=== PATIENT | male | born 1950 | race Caucasian/White ===

== ENCOUNTER → 2020-04-25 | Outpatient (CLI) | payer OTHER ==
--- NOTE | 2020-04-25 12:51 | XR ---
EXAMINATION TYPE: XR chest 2V DATE OF EXAM: 04/25/2020 COMPARISON: NONE HISTORY: Sinus allergies. Long-term opiate use. TECHNIQUE: Frontal and lateral views of the chest are obtained. FINDINGS: There is no focal air space opacity, pleural effusion, or pneumothorax seen. The cardiac silhouette size is within normal limits. Mild to moderate multilevel spurring in the spine. IMPRESSION: No acute cardiopulmonary process.
== END | disposition home or self-care (01) ==
LOC: RADXRMAIN 12:06
PROVIDERS: ATTEND Family Medicine
DX: Z51.81 Encounter for therapeutic drug level monitoring (principal); Z79.891 Long term (current) use of opiate analgesic
CPT/HCPCS: 71046

== ENCOUNTER → 2021-04-02 | Outpatient (CLI) | payer MEDICARE ==
--- NOTE | 2021-04-02 15:07 | MR ---
EXAMINATION TYPE: MR Prostate wo/w con DATE OF EXAM: 04/02/2021 COMPARISON: None. IMAGE QUALITY: Satisfactory. INDICATION: Elevated PSA PSA: 16.10 ng/ml on March 14, 2021 TECHNIQUE: Examination was performed using a 3T MRI without an endorectal coil. Multiparametric imaging was perf ormed with T2 multiplanar sequences, axial diffusion weighted imaging and dynamic contrast enhanced i maging, utilizing 11ml mL intravenous Gadavist gadolinium contrast. FINDINGS: There is no clinically significant cancer identified. PROSTATE VOLUME: 7.6 cm SI x 5.7 cm AP x 7.0 cm LR Vol= 148.3 cc Predicted PSA equals 17.80 PSA DENSITY: 0.11 ng/ml/cc Markedly enlarged prostate gland with marked transitional zone hypertrophy. The thin peripheral zone shows some areas of indistinct hypointensity and ADC mapping without significant increased signal on diffusion-weighted imaging. Markedly enlarged transitional zone shows single area left mid zone measuring roughly 9 x 7 mm of ind istinct heterogeneous T2 hypointensity reference axial image 20. No restricted diffusion at this leve l. Seminal vesicles appear within normal limits. Bladder poorly distended with [id number] wall tra beculation and thickening. No adjacent pelvic adenopathy is seen. Visualized osseous structures are i ntact. No bowel dilatation is present. Streak artifact from Metallic hardware from left hip surgery i s noted. IMPRESSION: Markedly enlarged prostate gland correlates with given PSA value. A focus of clinically significant cancer is not definitively identified. Highest Assessment Category: 3 MRI Stage: T0 N0 M0 based on review of pelvic images. False negative rates for MRI range from 5-20% depending on risk profile. Assessment Categories: 1 ? Very low (clinically significant cancer is highly unlikely to be present) 2 ? Low (clinically significant cancer is unlikely to be present) 3 ? Intermediate (the presence of clinically significant cancer is equivocal) 4 ? High (clinically significant cancer is likely to be present) 5 ? Very high (clinically significant cancer is highly likely to be present)
== END | disposition home or self-care (01) ==
LOC: RADMRIMAIN 06:53
PROVIDERS: ATTEND Urology
DX: N40.0 Benign prostatic hyperplasia without lower urinary tract symptoms (principal)
CPT/HCPCS: 72197; A9585

== ENCOUNTER 2021-07-25 08:19 | Inpatient (IN) | payer MEDICARE ==
--- NOTE | 2021-07-25 07:51 | P.HPIHPCON ---
History of Present Illness H&P Date: 07/25/21 This is a 71-year-old male with history of 148 g prostate, he he is symptomatic secondary to his enlarged prostate. Discussed with him given his prostate size the option of robotic simple prostatectomy versus a HoLEP. Discussed risk and benefit of each approach. He agreed to proceed with robotic simple prostatectomy discussed the risk which includes but not limited to bleeding, infection, urinary incontinence, erectile dysfunction, retrograde ejaculation, injury to nearby organs which includes but not limited to bladder, rectum, bowel. Discussed also potential persistent urinary symptoms even with simple prostatectomy. Discussed also risk from anesthesia. He understood all the risk and agreed to proceed Consent for Procedure: I have explained the operation/procedure to the patient, including the risks, benefits, side effects, alternative therapies (including not receiving the proposed treatment or service), the likelihood of the patient achieving his/her goals, and potential recuperation problems for the procedure/sedation/analgesia, as well as any blood products, if indicated. I also explained to the patient the risks, benefits and side effects of the alternatives, as well as the risks related to not receiving the proposed procedure, care, treatment, or services. Past Medical History Past Medical History: Atrial Fibrillation, GERD/Reflux, Hyperlipidemia, Hypertension, Osteoarthritis (OA), Prostate Disorder Additional Past Medical History / Comment(s): recent onset of a-fib History of Any Multi-Drug Resistant Organisms: None Reported Past Surgical History: Back Surgery, Joint Replacement Additional Past Surgical History / Comment(s): left hip replaced, laminectomy x2 Past Anesthesia/Blood Transfusion Reactions: No Reported Reaction Smoking Status: Former smoker Medications and Allergies Home Medications Medication Instructions Recorded Confirmed Type Amlodipine Besylate/Valsartan 1 each PO DAILY 06/17/21 07/24/21 History [Amlodipine-Valsartan 10-320 mg] Atorvastatin [Lipitor] 20 mg PO DAILY 06/17/21 07/24/21 History Fluticasone Nasal [place] [Flonase 1 spray EA NOSTRIL DAILY PRN 06/17/21 07/24/21 History Nasal [place]] HYDROcodone/APAP 10-325MG [[place] 1 tab PO Q6HR PRN 06/17/21 07/24/21 History 10-325] Montelukast Sodium [Singulair] 10 mg PO DAILY 06/17/21 07/24/21 History Omeprazole [PriLOSEC] 40 mg PO DAILY 06/17/21 07/24/21 History Tamsulosin HCl [Flomax] 0.4 mg PO DAILY 06/17/21 07/24/21 History atenoloL [Tenormin] 50 mg PO DAILY 06/17/21 07/24/21 History Apixaban [Eliquis] 5 mg PO BID 07/24/21 07/24/21 History Furosemide [Lasix] 20 mg PO DAILY 07/24/21 07/24/21 History Allergies Allergy/AdvReac Type Severity Reaction Status Date / Time nickel Allergy Unknown Verified 07/24/21 08:42 Surgical - Exam - General well developed, well nourished - ENT normal nares, normal mucosa - Respiratory normal expansion, normal respiratory effort - Abdomen Abdomen: soft, non tender - Psychiatric oriented to time, oriented to person, oriented to place Assessment and Plan Assessment: OR for robotic simple prostatectomy
[~2021-07-25 08:19] MED LIST: DEXAMETHASONE SOD PHOSPHATE 4 MG/ML 1 ML VIAL IV ONE; HEPARIN SODIUM,PORCINE/PF 5,000 UNIT/0.5 ML SYRINGE SQ PRN; HYDROmorphone 0.5 MG/0.5 ML SYRINGE IVP PRN; ONDANSETRON 4 MG/2 ML VIAL IVP ONE
[2021-07-25] MEDS: LACTATED RINGERS 1,000 ML IV SCH (09:25)
[2021-07-25] MEDS ORDERED: HYDROcodone/APAP 10-325MG 1 EACH TAB PO PRN (11:23)
[2021-07-25] MEDS ORDERED: FLUTICASONE 50MCG/SPRAY NASAL 16GM EA NOSTRIL PRN (11:23)
[2021-07-25] MEDS ORDERED: MIDAZOLAM 2 MG/2 ML VIAL ONE (11:51)
[2021-07-25] MEDS ORDERED: KETAMINE 10 MG/ML 20 ML VIAL ONE (11:51)
[2021-07-25] MEDS ORDERED: ROCURONIUM 10 MG/ML (5 ML VIAL) IV ONE (11:51)
[2021-07-25] MEDS ORDERED: HYDROmorphone (PF) 1 MG/ML ONE (11:51)
[2021-07-25] MEDS ORDERED: KETOROLAC 15 MG/ML 1 ML VIAL ONE (11:51)
[2021-07-25] MEDS ORDERED: GLYCOPYRROLATE 0.2 MG/ML 2 ML VIAL ONE (11:51)
[2021-07-25] MEDS ORDERED: SUCCINYLCHOLINE CHLORIDE 100 MG/5 ML SYR IV ONE (11:51)
[2021-07-25] MEDS ORDERED: ONDANSETRON 4 MG/2 ML VIAL ONE (11:51)
[2021-07-25] MEDS ORDERED: PHENYLEPHRINE-0.9% NACL SYG 1,000 MCG/10 ML SYRINGE ONE (11:51)
[2021-07-25] MEDS ORDERED: NEOSTIGMINE 1 MG/ML 10 ML VIAL ONE (11:51)
[2021-07-25] MEDS ORDERED: PROPOFOL 10 MG/ML 20 ML VIAL IV ONE (11:51)
[2021-07-25] MEDS ORDERED: fentaNYL (PF) 50 MCG/ML 2 ML AMP ONE (11:51)
[2021-07-25] MEDS ORDERED: BUPIVACAINE (PF) 0.25% 30 ML VIAL SQ ONE ×2 (12:29→17:10)
[2021-07-25] MEDS ORDERED: SODIUM CHLORIDE 0.9% 50 ML with ceFAZolin 2,000 MG IV ONE ×2 (16:11)
[2021-07-25] MEDS ORDERED: LACTATED RINGERS 1,000 ML IV ONE (16:16)
--- NOTE | 2021-07-25 17:24 | P.OP ---
Date of Procedure: 07/25/21 Preoperative Diagnosis: BPH Postoperative Diagnosis: Same Procedure(s) Performed: Robotic simple prostatectomy Implants: None Anesthesia: ROHITHA Surgeon: Ric Everett Estimated Blood Loss (ml): 300 Pathology: other (Prostate adenoma) Condition: stable Disposition: PACU Indications for Procedure: This is a 71-year-old male with history of 148 g prostate, he he is symptomatic secondary to his enlarged prostate. Discussed with him given his prostate size the option of robotic simple prostatectomy versus a HoLEP. Discussed risk and benefit of each approach. He agreed to proceed with robotic simple prostatectomy discussed the risk which includes but not limited to bleeding, infection, urinary incontinence, erectile dysfunction, retrograde ejaculation, injury to nearby organs which includes but not limited to bladder, rectum, bowel. Discussed also potential persistent urinary symptoms even with simple prostatectomy. Discussed also risk from anesthesia. He understood all the risk and agreed to proceed Operative Findings: Trilobar hyperplasia Description of Procedure: After preoperative antibiotics were started, the patient was taken to the operating room. Anesthesia was induced and the patient was placed in a supine position with adequate padding of the pressure points, shoulders, back, legs and arms. He was then prepped and draped in the standard fashion. A critical pause was performed using two patient identifiers. A 16F miller catheter was placed to gravity drainage. A pneumoperitoneum was obtained using a Veress needle, after pneumoperitoneum was obtained a 8 mm came ra port was placed. Under direct vision a 8mm robotic ports was placed lateral to each rectus slightly below the camera port. The left iliac fossa 8mm port was placed. The right clinical trial assistant right iliac fossa 12mm port and right paramedian 5mm portwere placed. After the patient was placed in the trendelenberg position, the robot was then docked to the 8mm robotic ports and then each robotic arm and tower was checked in relation to the patient's legs and hands to avoid inadvertent compression. The peritoneal cavity was inspected. Adhesions were taken down along the left lower quadrant An inverted U-shaped incision began laterally to the left medial umbilical ligament and extended high across the midline to the right umbilical ligament. The limbs of the "U" extended to the level of the vasa on both sides. We next developed the preperitoneal space and the space of Retzius. Cautery was used to dissected the bladder away from the prostate, the incision was made in close proximity to the prostate, and incision was extended laterally and at this point the plane between the adenoma and the surgical capsule is identified. Both ureteral orifices were identified and neither was injured during the dissection . Of note patient had a significantly enlarged median lobe, and there was significant intravesical extension of the right lobe. The adenoma was dissected off of the capsule by combination of blunt dissection and minimum cautery. dissection was initially started along the anterior surface and posterior surface of adenoma, and this was carried laterally. The dissection was carried to the apex, at this point the urethral-prostatic junction was visualized and the prostate was transected at the junction. Prostate adenoma was placed in an endocatch bag . A 9and 9 inch 3-0 V-Lock suture was used to anastomose the urethra and bladder, starting at the 6:00 posterior position. Mucosa was secured in every stitch, to ensure a mucosa to mucosa anastomosis. The stitch was regularly cinched and the anastomosis tightened. . The 20 Fr Miller catheter was advanced, the bladder filled, and the anastomosis was tested. Anastomsis was watertight at 150 mL. balloon was inflated to 10 mL The robot was undocked. specimen was extracted from the supraumbilical incision. Of note patient had a umbilical hernia, the hernia sac was dissected off. Next the fascial edges were dissected. The periumbilical fascia was closed with 1-0-PDS suture in figure of 8 fashion. All ports were closed with a subcuticular 4-0 monocryl and Dermabond. Sponge, instrument, and needle counts were correct at the end of the case x2. The patient tolerated the surgery well and without complication. He awoke without difficulty and was taken to the recovery room in stable condition
[2021-07-25] MEDS: HEPARIN SODIUM,PORCINE/PF 5,000 UNIT/0.5 ML SYRINGE SQ SCH ×2 (18:54→23:29)
[2021-07-25] MEDS: D5-0.45% NACL WITH KCL 20MEQ/L 1,000 ML IV SCH (20:15)
[2021-07-25] MEDS: KETOROLAC 15 MG/ML 1 ML VIAL IVP SCH ×2 (20:19→23:28)
[2021-07-26] MEDS: D5-0.45% NACL WITH KCL 20MEQ/L 1,000 ML IV SCH ×2 (04:14→10:34)
[2021-07-26] MEDS: KETOROLAC 15 MG/ML 1 ML VIAL IVP SCH ×2 (06:26→11:46)
[2021-07-26] MEDS ORDERED: PANTOPRAZOLE 40 MG TABLET PO SCH (07:30)
[2021-07-26] MEDS: LACTATED RINGERS 1,000 ML IV SCH (07:49)
[2021-07-26 07:59] VITALS: BP 128/74; PULSE 86; RESP 17; TEMP 97.6
[2021-07-26] MEDS: HEPARIN SODIUM,PORCINE/PF 5,000 UNIT/0.5 ML SYRINGE SQ SCH (08:53)
[2021-07-26] MEDS ORDERED: atenoloL 50 MG TAB PO SCH (09:00)
[2021-07-26] MEDS ORDERED: FUROSEMIDE 20 MG TAB PO SCH (09:00)
[2021-07-26] MEDS ORDERED: MONTELUKAST 10 MG TAB PO SCH (09:00)
[2021-07-26] MEDS ORDERED: VALSARTAN 160 MG TAB PO SCH (09:00)
[2021-07-26] MEDS ORDERED: ATORVASTATIN 20 MG TAB PO SCH (09:00)
[2021-07-26] MEDS ORDERED: amLODIPine 10 MG TAB PO SCH (09:00)
--- NOTE | 2021-07-26 13:10 | P.DS ---
Providers Date of admission: 07/25/21 08:19 Expected date of discharge: 07/26/21 Attending physician: Ric Everett MD Primary care physician: Miguel Indira [facility] Course: On the day of admission, the patient underwent an uncomplicated robotic-assisted laparoscopic simple prostatectomy. The perioperative course was unremarkable. He remained afebrile with stable vital signs. On the first postoperative day, he was tolerating diet and ambulating without difficulty. He reported mild incisional discomfort. On examination, the abdomen was soft and nondistended. The incisions were clean, dry, and intact. The Gan catheter was draining faintly blood-tinged urine. Procedures: Robotic simple prostatectomy on 07/25/2021. Patient Condition at Discharge: Good Plan - Discharge Summary Discharge Rx Participant: Yes New Discharge Prescriptions: New Ciprofloxacin HCl [Cipro] 250 mg PO Q12HR #6 tablet HYDROcodone/APAP 5-325MG [[place] 5-325] 1 - 2 tab PO Q4HR PRN #6 tab PRN Reason: Severe Pain Ketorolac [Toradol] 10 mg PO Q6HR PRN #12 tab PRN Reason: Mild To Moderate Pain No Action Amlodipine Besylate/Valsartan [Amlodipine-Valsartan 10-320 mg] 1 each PO DAILY Omeprazole [PriLOSEC] 40 mg PO DAILY Tamsulosin HCl [Flomax] 0.4 mg PO DAILY HYDROcodone/APAP 10-325MG [[place] 10-325] 1 tab PO Q6HR PRN PRN Reason: Pain Apixaban [Eliquis] 5 mg PO BID Montelukast Sodium [Singulair] 10 mg PO DAILY atenoloL [Tenormin] 50 mg PO DAILY Atorvastatin [Lipitor] 20 mg PO DAILY Fluticasone Nasal [place] [Flonase Nasal [place]] 1 spray EA NOSTRIL DAILY PRN PRN Reason: Allergy Symptoms Furosemide [Lasix] 20 mg PO DAILY Discharge Medication List Amlodipine Besylate/Valsartan [Amlodipine-Valsartan 10-320 mg] 1 each PO DAILY 06/17/21 [History] Atorvastatin [Lipitor] 20 mg PO DAILY 06/17/21 [History] Fluticasone Nasal [place] [Flonase Nasal [place]] 1 spray EA NOSTRIL DAILY PRN 06/17/21 [History] HYDROcodone/APAP 10-325MG [[place] 10-325] 1 tab PO Q6HR PRN 06/17/21 [History] Montelukast Sodium [Singulair] 10 mg PO DAILY 06/17/21 [History] Omeprazole [PriLOSEC] 40 mg PO DAILY 06/17/21 [History] Tamsulosin HCl [Flomax] 0.4 mg PO DAILY 06/17/21 [History] atenoloL [Tenormin] 50 mg PO DAILY 06/17/21 [History] Apixaban [Eliquis] 5 mg PO BID 07/24/21 [History] Furosemide [Lasix] 20 mg PO DAILY 07/24/21 [History] Ciprofloxacin HCl [Cipro] 250 mg PO Q12HR #6 tablet 07/26/21 [Rx] HYDROcodone/APAP 5-325MG [[place] 5-325] 1 - 2 tab PO Q4HR PRN #6 tab 07/26/21 [Rx] Ketorolac [Toradol] 10 mg PO Q6HR PRN #12 tab 07/26/21 [Rx] Follow up Appointment(s)/Referral(s): Ric Everett MD [STAFF PHYSICIAN] - 08/04/21 Patient Instructions/Handouts: Gan Catheter Placement and Care (DC), Robot Assisted Laparoscopic Prostatectomy (DC) Activity/Diet/Wound Care/Special Instructions: Discharge home with Gan catheter. Please provide patient with an overnight drainage bag as well as a urinary leg bag, and instruct him on the use of both. Okay to shower. Diet as tolerated. No lifting, driving, or strenuous activity. Patient to contact Dr. Everett next week to determine when to resume Eliquis. Begin taking ciprofloxacin one day prior to follow-up appointment. Please reassure patient that it is common to experience the following: Hematuria, urinary leakage around the catheter, abdominal wall bruising, and penoscrotal swelling. Discharge Disposition: HOME SELF-CARE
== END 2021-07-26 14:14 | disposition home or self-care (01) | DRG 708 ==
LOC: 2ORMAIN 08:19 → 4SSUR 17:30
PROVIDERS: ADMIT Urology; ATTEND Urology
PROC: 0VT04ZZ Resection of Prostate, Percutaneous Endoscopic Approach (ICD-10-PCS; principal; 2021-07-25 10:15)
DX: N40.1 Benign prostatic hyperplasia with lower urinary tract symptoms (principal); R31.0 Gross hematuria; I48.91 Unspecified atrial fibrillation; K21.9 Gastro-esophageal reflux disease without esophagitis; I10 Essential (primary) hypertension; M19.90 Unspecified osteoarthritis, unspecified site; E78.5 Hyperlipidemia, unspecified; Z87.891 Personal history of nicotine dependence
CPT/HCPCS: 86850; 86900; 86901; 88307

== ENCOUNTER → 2021-12-22 | Outpatient (CLI) | payer MEDICARE ==
--- NOTE | 2021-12-22 09:54 | CT ---
EXAMINATION TYPE: CT sinus wo con DATE OF EXAM: 12/22/2021 COMPARISON: None HISTORY: Chronic sinusitis CT DLP: 635.[address] of the paranasal sinuses was performed in the axial and coronal planes. Bone and soft tissue settings are submitted. There is moderate to severe opacification right maxillary sinus with mild opacification and mucosal t hickening left maxillary sinus. Severe opacification of the ethmoid air cells and moderate opacificat ion of the sphenoid sinus. Mild mucosal thickening frontal sinuses. Underlying polyposis is not exclu ded. There is obstruction of the bilateral ostiomeatal units. The nasal septum is midline. No bony destructive changes are seen within the field of view. IMPRESSION: There is diffuse chronic pansinusitis noted and/or underlying polyposis.
== END | disposition home or self-care (01) ==
LOC: RADCTMAIN 09:02
PROVIDERS: ATTEND Otolaryngology
DX: J32.4 Chronic pansinusitis (principal); J34.9 Unspecified disorder of nose and nasal sinuses; J33.9 Nasal polyp, unspecified
CPT/HCPCS: 70486

== ENCOUNTER 2023-04-06 07:08 | Day surgery (SDC) | payer MEDICARE ==
[~2023-04-06 07:08] MED LIST changes: -DEXAMETHASONE SOD PHOSPHATE 4 MG/ML 1 ML VIAL IV ONE; -HEPARIN SODIUM,PORCINE/PF 5,000 UNIT/0.5 ML SYRINGE SQ PRN; -HYDROmorphone 0.5 MG/0.5 ML SYRINGE IVP PRN; +LIDOCAINE 1% (10MG/ML) FOR IV START INTRADERMA PRN; -ONDANSETRON 4 MG/2 ML VIAL IVP ONE
[2023-04-06] MEDS: LACTATED RINGERS 1,000 ML IV SCH (07:54)
[2023-04-06 08:04] VITALS: TEMP 96.6
[2023-04-06] MEDS ORDERED: PROPOFOL 10 MG/ML 20 ML VIAL IV ONE (08:09)
[2023-04-06] MEDS ORDERED: LIDOCAINE 1% INJ 10MG/ML (20 ML MDV) ONE (08:09)
[2023-04-06] MEDS ORDERED: KETAMINE HCL IN 0.9 % NACL 50 MG/5 ML SYRINGE ONE (08:09)
[2023-04-06] MEDS ORDERED: MIDAZOLAM 2 MG/2 ML VIAL ONE (08:09)
--- NOTE | 2023-04-06 08:11 | P.GSHP ---
History of Present Illness H&P Date: 04/06/23 Chief Complaint: GERD, Velazquez's, screening with history of polyp 33-year-old male here for upper and lower endoscopy. Patient with history of Velazquez's esophagus and underwent ablation in the past. Today he is here for upper and lower endoscopy. His last colonoscopy 10 years ago or so. Had a small adenoma in the rectum at the time. No bowel complaints. Scheduled for repair incisional hernia next week. Past Medical History Past Medical History: Atrial Fibrillation, GERD/Reflux, Hyperlipidemia, Hypertension, Osteoarthritis (OA), Prostate Disorder Additional Past Medical History / Comment(s): recent onset of a-fib History of Any Multi-Drug Resistant Organisms: None Reported Past Surgical History: Back Surgery, Joint Replacement Additional Past Surgical History / Comment(s): left hip replaced, laminectomy x2, nasal surgery, Past Anesthesia/Blood Transfusion Reactions: No Reported Reaction Smoking Status: Former smoker - Past Family History Brother(s) Family Medical History: Cancer Additional Family Medical History / Comment(s): esophageal , other brother with sacroidosis Sister(s) Family Medical History: Cancer Additional Family Medical History / Comment(s): breast Medications and Allergies Home Medications Medication Instructions Recorded Confirmed Type Amlodipine Besylate/Valsartan 1 each PO DAILY 06/17/21 04/06/23 History [Amlodipine-Valsartan 10-320 mg] Atorvastatin [Lipitor] 20 mg PO DAILY 06/17/21 04/06/23 History Fluticasone Nasal [place] [Flonase 1 spray EA NOSTRIL DAILY PRN 06/17/21 04/06/23 History Nasal [place]] HYDROcodone/APAP 10-325MG [[place] 1 tab PO Q6HR PRN 06/17/21 04/06/23 History 10-325] Omeprazole [PriLOSEC] 40 mg PO DAILY 06/17/21 04/06/23 History atenoloL [Tenormin] 50 mg PO BID 06/17/21 04/06/23 History Furosemide [Lasix] 20 mg PO DAILY 07/24/21 04/06/23 History Rivaroxaban [Xarelto] 20 mg PO HS 03/31/23 04/06/23 History Allergies Allergy/AdvReac Type Severity Reaction Status Date / Time nickel Allergy Unknown Verified 04/06/23 07:53 Surgical - Exam Vital Signs Temp Pulse Resp BP Pulse Ox 96.6 F L 71 20 124/84 96 04/06/23 07:58 04/06/23 07:58 04/06/23 07:58 04/06/23 07:58 04/06/23 07:58 Physical exam: General: Well-developed, well-nourished HEENT: Normocephalic, sclerae nonicteric Abdomen: Nontender, nondistended Extremities: No edema Neuro: Alert and oriented Assessment and Plan (1) GERD (gastroesophageal reflux disease) Narrative/Plan: Will proceed with upper and lower endoscopy at this time. Current Visit: Yes Status: Acute Code(s): K21.9 - GASTRO-ESOPHAGEAL REFLUX DISEASE WITHOUT ESOPHAGITIS SNOMED Code(s): 554200232
--- NOTE | 2023-04-06 08:36 | P.PCN ---
Date of Procedure: 04/06/23 Procedure(s) Performed: PREOPERATIVE DIAGNOSIS: GERD, history of Velazquez's, screening, history of polyps POSTOPERATIVE DIAGNOSIS: Gastritis, multiple gastric polyps, Velazquez's esophagus, transverse colon polyp PROCEDURE: 1. EGD with biopsy 2. Colonoscopy with snare polypectomy ANESTHESIA: [facility] [place] SURGEON: Devante Humphries M.D. SPECIMENS: Antrum, gastric polyps, Velazquez's esophagus ENDOSCOPIC PROCEDURE: The patient was on the endoscopy table in the left decubitus position. The Olympus gastroscope was inserted into the oropharynx and passed under direct visualization to the region of the third portion of the duodenum. From that point the scope was slowly withdrawn inspecting all surfaces carefully. There were no neoplastic inflammatory or polypoid lesions throughout the duodenum. The pylorus was widely patent. The stomach was carefully inspected. There was gastritis present. A biopsy of the antrum took place to rule out H. pylori. The patient had multiple gastric polyps. These were somewhat friable and some of them had some oozing when manipulated. The largest polyp was in the fundus of the stomach. This measured 1.5 cm or so in size. This was somewhat sessile but had some friable tissue associated with it. Biopsies were taken. Small amount of bleeding was noted. No definite hiatal hernia was seen. At the distal esophagus there was a 2 cm segment of what appeared to represent Velazquez's esophagus. Biopsies were taken. The remainder the esophagus appeared normal. The patient was kept on the endoscopy table in the left decubitus position. The Olympus colonoscope was inserted into the anus and passed under direct visualization to the base of the cecum. The appendiceal orifice was visualized. From that point the scope was slowly withdrawn inspecting all surfaces carefully. There were no neoplastic inflammatory or polypoid lesions throughout the cecum, and ascending colon. In the transverse colon a small polyp was seen and removed using a snare with cautery technique. The remainder of the transverse descending sigmoid and rectum appeared normal. There was no visible diverticulosis. Digital rectal examination was normal. The patient was taken to the recovery room in stable condition per anesthesia guidelines. RECOMMENDATIONS: Await biopsy results. Patient will need further workup of this larger proximal gastric polyp. May have patient be seen by advanced GI that performed his previous ablation. Tentatively plan repeat colonoscopy 5 years. Proceed with upcoming repair of incisional hernia next week.
[2023-04-06 09:07] VITALS: BP 125/78; PULSE 75; RESP 18
== END 2023-04-06 09:25 | disposition home or self-care (01) ==
LOC: ORWHC2ENDO 07:08
PROVIDERS: ATTEND Surgery
DX: Z12.11 Encounter for screening for malignant neoplasm of colon (principal); K29.50 Unspecified chronic gastritis without bleeding; K22.70 Barrett's esophagus without dysplasia; K21.00 Gastro-esophageal reflux disease with esophagitis, without bleeding; K31.7 Polyp of stomach and duodenum; D12.3 Benign neoplasm of transverse colon; I48.91 Unspecified atrial fibrillation; E78.5 Hyperlipidemia, unspecified; M19.90 Unspecified osteoarthritis, unspecified site; N42.9 Disorder of prostate, unspecified; I10 Essential (primary) hypertension; Z98.890 Other specified postprocedural states; Z87.891 Personal history of nicotine dependence; Z80.3 Family history of malignant neoplasm of breast; Z79.899 Other long term (current) drug therapy; Z86.010 Personal history of colon polyps; Z91.048 Other nonmedicinal substance allergy status; Z79.01 Long term (current) use of anticoagulants
CPT/HCPCS: 88305; 88342; 45385; 43239; J2250; J2001; J2704

== ENCOUNTER 2023-04-12 05:35 | Day surgery (SDC) | payer MEDICARE ==
[2023-04-12] MEDS ORDERED: LIDOCAINE 1% (10MG/ML) FOR IV START INTRADERMA PRN (05:56)
[2023-04-12] MEDS ORDERED: HYDROmorphone 0.5 MG/0.5 ML SYRINGE IVP PRN (05:56)
[2023-04-12] MEDS ORDERED: droPERidol 5 MG/2 ML VIAL IVP ONE (05:56)
[2023-04-12 06:58] LABS: Basophils # (A) 0.1 k/uL (0-0.2); Basophils % (A) 1 %; Eosinophils # (A) 0.3 k/uL (0-0.7); Eosinophils % (A) 5 %; HGB 14.5 gm/dL (13.0-17.5); Lymphocytes # (A) 2.6 k/uL (1.0-4.8); Lymphocytes % (A) 37 %; MCH 30.9 pg (25.0-35.0); MCHC 33.8 g/dL (31.0-37.0); MCV 91.5 fL (80.0-100.0); Mean Platelet Volume 8.3; Monocytes # (A) 0.4 k/uL (0-1.0); Monocytes % (A) 5 %; Neutrophils # (A) 3.6 k/uL (1.3-7.7); Neutrophils % (A) 50 %; Platelet Count 229 k/uL (150-450); RDW 13.3 % (11.5-15.5); WBC 7.1 k/uL (3.8-10.6)
[2023-04-12] MEDS: ACETAMINOPHEN TAB 500 MG TAB PO PRN (07:05)
[2023-04-12] MEDS: MIDAZOLAM 2 MG/2 ML VIAL IVP ONE (07:06)
[2023-04-12 07:14] LABS: African American GFR (CKD) >90 (>60 ml/min/1.73 sqM); Anion Gap 6 mmol/L; Blood Urea Nitrogen 18 mg/dL (9-20); Calcium 9.1 mg/dL (8.4-10.2); Carbon Dioxide 28 mmol/L (22-30); Chloride 107 mmol/L (98-107); Glucose 125 mg/dL (74-99); Non-African American GFR(CKD) >90 (>60 ml/min/1.73 sqM); Potassium 3.6 mmol/L (3.5-5.1); Sodium 141 mmol/L (137-145)
[2023-04-12] MEDS ORDERED: PHENYLEPHRINE-0.9% NACL SYG 1,000 MCG/10 ML SYRINGE ONE (07:25)
[2023-04-12] MEDS ORDERED: PROPOFOL 10 MG/ML 20 ML VIAL IV ONE (07:25)
[2023-04-12] MEDS ORDERED: KETOROLAC 15 MG/ML 1 ML VIAL ONE (07:25)
[2023-04-12] MEDS ORDERED: LIDOCAINE 1% INJ 10MG/ML (20 ML MDV) ONE (07:25)
[2023-04-12] MEDS ORDERED: HYDROmorphone (PF) 1 MG/ML ONE (07:25)
[2023-04-12] MEDS ORDERED: SUCCINYLCHOLINE CHLORIDE 200 MG/10 ML VIAL IV ONE (07:25)
[2023-04-12] MEDS ORDERED: fentaNYL (PF) 50 MCG/ML 2 ML AMP ONE (07:25)
[2023-04-12] MEDS ORDERED: ROPIVACAINE 5 MG/ML 30 ML VIAL ONE (07:25)
[2023-04-12] MEDS: TAMSULOSIN 0.4 MG CAP.ER.24H PO ONE (07:26)
--- NOTE | 2023-04-12 07:27 | P.ANPRN ---
Procedure Note - Anesthesia - Nerve Block Performed Bilateral Erector Spinae Single Time Out Performed: Yes Date of Procedure: 04/12/23 Procedure Start Time: : Procedure Stop Time: :12 Location of Patient: PreOp Indication: Acute Post-Operative Pain, Analgesia, Requested by Surgeon Sedation Type: Sedate with meaningful contact maintained Preparation: Sterile Prep Position: Sitting Catheter: None Needle Types: Pajunk Needle Gauge: 21 Ultrasound used to visualize needle placement: Yes Ultrasound used to observe medication spread: Yes Injectate: 0.5% Ropivacaine (see comment for volume) (Ropivacaine 25 ml-- each side) Blood Aspirated: No Pain Paresthesia on Injection Noted: No Resistance on Injection: Normal Image Stored and Saved: Yes Events: Uneventful and Well Tolerated
--- NOTE | 2023-04-12 07:27 | P.GSHP ---
History of Present Illness H&P Date: 04/12/23 Chief Complaint: Incisional hernia 73-year-old male here for repair incisional hernia. Patient with enlarging bulge at previous prostatectomy extraction site. Mild pain. Increasing size. Past Medical History Past Medical History: Atrial Fibrillation, GERD/Reflux, Hyperlipidemia, Hypertension, Osteoarthritis (OA), Prostate Disorder Additional Past Medical History / Comment(s): recent onset of a-fib History of Any Multi-Drug Resistant Organisms: None Reported Past Surgical History: Back Surgery, Joint Replacement Additional Past Surgical History / Comment(s): left hip replaced, laminectomy x2, nasal surgery, Past Anesthesia/Blood Transfusion Reactions: No Reported Reaction Smoking Status: Former smoker - Past Family History Mother Family Medical History: Cancer Sister(s) Family Medical History: Cancer Brother(s) Family Medical History: Cancer Medications and Allergies Home Medications Medication Instructions Recorded Confirmed Type Amlodipine Besylate/Valsartan 1 each PO DAILY 06/17/21 04/06/23 History [Amlodipine-Valsartan 10-320 mg] Atorvastatin [Lipitor] 20 mg PO DAILY 06/17/21 04/06/23 History Fluticasone Nasal [place] [Flonase 1 spray EA NOSTRIL DAILY PRN 06/17/21 04/06/23 History Nasal [place]] HYDROcodone/APAP 10-325MG [[place] 1 tab PO Q6HR PRN 06/17/21 04/06/23 History 10-325] Omeprazole [PriLOSEC] 40 mg PO DAILY 06/17/21 04/06/23 History atenoloL [Tenormin] 50 mg PO BID 06/17/21 04/06/23 History Furosemide [Lasix] 20 mg PO DAILY 07/24/21 04/06/23 History Rivaroxaban [Xarelto] 20 mg PO HS 03/31/23 04/06/23 History Allergies Allergy/AdvReac Type Severity Reaction Status Date / Time nickel Allergy Unknown Verified 04/12/23 06:21 Surgical - Exam Vital Signs Temp Pulse Resp BP Pulse Ox 96.8 F L 78 16 135/83 96 04/12/23 06:36 04/12/23 06:36 04/12/23 06:36 04/12/23 06:36 04/12/23 06:36 Physical exam: General: Well-developed, well-nourished HEENT: Normocephalic, sclerae nonicteric Abdomen: Nontender, nondistended, reducible incisional hernia Extremities: No edema Neuro: Alert and oriented Results - Labs 04/12/23 06:43 04/12/23 06:43 Abnormal Lab Results - Last 24 Hours (Table) 04/12/23 Range/Units 06:43 Creatinine 0.65 L (0.66-1.25) mg/dL Glucose 125 H (74-99) mg/dL Diabetes panel 04/12/23 Range/Units 06:43 Sodium 141 (137-145) mmol/L Potassium 3.6 (3.5-5.1) mmol/L Chloride 107 (98-107) mmol/L Carbon Dioxide 28 (22-30) mmol/L BUN 18 (9-20) mg/dL Creatinine 0.65 L (0.66-1.25) mg/dL Glucose 125 H (74-99) mg/dL Calcium 9.1 (8.4-10.2) mg/dL Calcium panel 04/12/23 Range/Units 06:43 Calcium 9.1 (8.4-10.2) mg/dL Pituitary panel 04/12/23 Range/Units 06:43 Sodium 141 (137-145) mmol/L Potassium 3.6 (3.5-5.1) mmol/L Chloride 107 (98-107) mmol/L Carbon Dioxide 28 (22-30) mmol/L BUN 18 (9-20) mg/dL Creatinine 0.65 L (0.66-1.25) mg/dL Glucose 125 H (74-99) mg/dL Calcium 9.1 (8.4-10.2) mg/dL Adrenal panel 04/12/23 Range/Units 06:43 Sodium 141 (137-145) mmol/L Potassium 3.6 (3.5-5.1) mmol/L Chloride 107 (98-107) mmol/L Carbon Dioxide 28 (22-30) mmol/L BUN 18 (9-20) mg/dL Creatinine 0.65 L (0.66-1.25) mg/dL Glucose 125 H (74-99) mg/dL Calcium 9.1 (8.4-10.2) mg/dL Assessment and Plan (1) Incisional hernia Narrative/Plan: 73-year-old male with incisional hernia. Will proceed with open repair incisional hernia with mesh at this time. Risks of bleeding, infection, recurrence, bladder and bowel injury, numbness, nerve injury, conversion to an open procedure were discussed with the patient. The patient understands and wishes to proceed. Current Visit: Yes Status: Acute Code(s): K43.2 - INCISIONAL HERNIA WITHOUT OBSTRUCTION OR GANGRENE SNOMED Code(s): 082433079
[2023-04-12] MEDS: LACTATED RINGERS 1,000 ML IV SCH (07:33)
[2023-04-12] MEDS: DEXAMETHASONE SOD PHOSPHATE 4 MG/ML 1 ML VIAL IV ONE (07:34)
[2023-04-12] MEDS: ONDANSETRON 4 MG/2 ML VIAL IVP ONE (07:34)
[2023-04-12] MEDS: HEPARIN SODIUM,PORCINE 5,000 UNIT/ML 1 ML VIAL SQ PRN (07:34)
[2023-04-12] MEDS: BUPIVACAINE (PF) 0.25% 30 ML VIAL SQ ONE (07:58)
[2023-04-12] MEDS: LACTATED RINGERS 1,000 ML IV ONE (09:01)
--- NOTE | 2023-04-12 09:37 | P.OP ---
Date of Procedure: 04/12/23 Procedure(s) Performed: PREOPERATIVE DIAGNOSIS: Reducible incisional hernia POSTOPERATIVE DIAGNOSIS: Incisional hernia incarcerated with omental fat PROCEDURE: Open repair incarcerated incisional hernia with mesh, partial omentectomy SURGEON: Dr. Humphries ANESTHESIA: General OPERATIVE PROCEDURE DETAILS: Patient placed on the operating table in the supine position. Abdomen was prepped and draped in usual sterile fashion. The previous supraumbilical incision was re-incised and this was brought around to t he right side of the umbilicus. Dissection through the subcutaneous tissues took place using electrocautery. A large hernia was identified. The hernia sac was carefully dissected down to the level of the fascia where it was excised. There was a portion of omental fat that was it here and and incarcerated through the defect. This was included with our excision. A partial omentectomy took place. Omentum was ligated with 3-0 silk ties. A single large opening was then encountered measuring 5 x 7 cm. A 8 x 12 cm Ventrio mesh was utilized. The ventrio mesh was placed beneath the fascia and sutured to the fascia using 12 separate interrupted trans-fascial 0 Ethibond sutures. Following that the defect was closed horizontally using interrupted 0 Ethibond sutures in a vest over pants fashion. The folding edge was sutured down using interrupted 0 Ethibond sutures as well. The area was thoroughly irrigated. No bleeding was seen. A drain was placed anterior to the fascial closure exiting through the right lower quadrant. This was sutured to the skin using a 3-0 silk stitch. The subcutaneous tissues were closed using 2 oh and 3-0 Vicryl sutures. The skin was closed using talisha. Sterile dressings were applied. HERNIA CHARACTERISTICS: Length: 5 cm Width: 7 cm Type: Incarcerated incisional TYPE OF MESH USED: Ventrio ST LOCATION OF MESH: [place] FIXATION: 0 Ethibond PREOPERATIVE DISCUSSION ON SMOKING CESSASTION: Yes PREOPERATIVE DISCUSSION ON MORBID OBESITY: Yes PREOPERATIVE DISCUSSION ON APPROPRIATE USE OF NARCOTIC USE: Yes PREOPERATIVE EDUCATION: Multi Modal, Smoking Cessation and Weight Loss with BMI over 35. DISPOSITION: Stable to recovery room
[2023-04-12] MEDS: HYDROmorphone 0.5 MG/0.5 ML SYRINGE IVP ONE ×3 (10:01→10:38)
[2023-04-12 10:03] VITALS: TEMP 97.2
[2023-04-12 11:03] VITALS: BP 134/82; RESP 16
[2023-04-12] MEDS ORDERED: HYDROcodone/APAP 10-325MG 1 EACH TAB ONE (11:07)
[2023-04-12] MEDS: HYDROcodone/APAP 10-325MG 1 EACH TAB PO ONE (11:08)
[2023-04-12 11:34] VITALS: PULSE 85
[2023-04-12] MEDS ORDERED: ACETAMINOPHEN TAB 325 MG TAB PO SCH (12:00)
[2023-04-12] MEDS ORDERED: IBUPROFEN 600 MG TAB PO SCH (12:45)
== END 2023-04-12 11:55 | disposition home or self-care (01) ==
LOC: OR 05:35
PROVIDERS: ATTEND Surgery
DX: K43.0 Incisional hernia with obstruction, without gangrene (principal); I48.91 Unspecified atrial fibrillation; K21.9 Gastro-esophageal reflux disease without esophagitis; E78.5 Hyperlipidemia, unspecified; I10 Essential (primary) hypertension; J44.9 Chronic obstructive pulmonary disease, unspecified; M19.90 Unspecified osteoarthritis, unspecified site; Z87.891 Personal history of nicotine dependence; Z79.01 Long term (current) use of anticoagulants; Z79.899 Other long term (current) drug therapy
CPT/HCPCS: 49594; 64999; 80048; 85025; C1781; J2250; J1644; J1100; J0690; J2405; J1170; 88305

== ENCOUNTER → 2024-07-17 | Outpatient (CLI) | payer MEDICARE ==
[2024-07-17 16:50] LABS: Blood Urea Nitrogen 23.2 mg/dL (9.0-27.0); Calcium 8.8 mg/dL (8.7-10.3); Chloride 104 mmol/L (96-109); Glucose 125 mg/dL (70-110); Potassium 3.7 mmol/L (3.5-5.5); Sodium 139 mmol/L (135-145)
[2024-07-17 16:51] LABS: HGB 14.6 g/dL (13.0-17.0); MCH 30.9 pg (27.0-32.0); MCHC 33.2 g/dL (32.0-37.0); Mean Platelet Volume 10.9 FL (9.5-12.2); NRBC Per 100 WBC 0 X 10*3/uL (0.00-0.01); Platelet Count 248 X 10*3/uL (140-440); RBC 4.73 X 10*6/uL (4.40-5.60)
== END | disposition home or self-care (01) ==
LOC: LABWHC1 10:21
PROVIDERS: ATTEND Internal Medicine Cardiovascular Disease
DX: I48.0 Paroxysmal atrial fibrillation (principal); Z53.9 Procedure and treatment not carried out, unspecified reason
CPT/HCPCS: 36415; 80048; 85027

== ENCOUNTER 2024-09-19 06:15 | Day surgery (SDC) | payer MEDICARE ==
[2024-09-15 11:30] VITALS: BMI 33.0
[~2024-09-19 06:15] MED LIST changes: -LIDOCAINE 1% (10MG/ML) FOR IV START INTRADERMA PRN; +SODIUM CHLORIDE 0.9% 1,000 ML IV SCH
[2024-09-19] MEDS: SODIUM CHLORIDE 0.9% 500 ML 500 ML IV ONE (06:33)
[2024-09-19 06:50] VITALS: RESP 16; TEMP 97.8
[2024-09-19] MEDS ORDERED: PROPOFOL 10 MG/ML 20 ML VIAL IV ONE (07:23)
[2024-09-19] MEDS: BENZOCAINE SPRAY 1 EACH MUCOUS MEM PRN (07:26)
[2024-09-19 07:28] LABS: African American GFR (CKD) >90 (>60 ml/min/1.73 sqM); Anion Gap 10 mmol/L; Blood Urea Nitrogen 19 mg/dL (9-20); Calcium 9.5 mg/dL (8.4-10.2); Carbon Dioxide 23 mmol/L (22-30); Chloride 107 mmol/L (98-107); Glucose 117 mg/dL (74-99); Non-African American GFR(CKD) >90 (>60 ml/min/1.73 sqM); Sodium 140 mmol/L (137-145)
[2024-09-19 07:54] LABS: Potassium 4.3 mmol/L (3.5-5.1)
[2024-09-19 09:38] VITALS: BP 142/87; PULSE 61
--- NOTE | 2024-09-20 16:52 | ECHOS ---
STRESS ECHOCARDIOGRAM STUDY: EEG. INDICATION: Persistent atrial fibrillation to rule out intracardiac thrombus prior to cardioversion. PROCEDURE NOTE: After obtaining informed consent, transesophageal echocardiogram was performed in left lateral position using an Omniplane probe. Local and IV sedation were obtained by the financial examiner. The patient tolerated the procedure well without any immediate complications. FINDINGS: 1. There is no intracardiac thrombus within the left atrial appendage, left atrium, right atrium, or right ventricle. 2. Left atrium appears enlarged. Right atrium and right ventricle seen within normal limits. 3. Left ventricle has normal size, shows mild diffuse global hypokinesis with an ejection fraction of 45%. Mitral valve appears anatomically normal. There is mild central mitral regurgitation noted. Aortic valve is a 3-leaflet valve. There is no evidence of aortic stenosis or regurgitation. There is mild tricuspid regurgitation. Interatrial septum, there is no evidence of [id number] shunt by color-flow Doppler or [id number] shunt by agitated saline contrast study. CONCLUSION: No intracardiac thrombus. PLAN: The patient will undergo cardioversion. STUDY: Cardioversion note. INDICATION: Persistent atrial fibrillation. PROCEDURE NOTE: After obtaining informed consent, electrical cardioversion was performed using 150 joules of synchronized DC current. The patient was sedated by the financial examiner, adequately anticoagulated with Xarelto. Intracardiac thrombus was ruled out by ASHLEE. CONCLUSION: Successful cardioversion. MMODL / IJN: [id number] /
== END 2024-09-19 09:21 | disposition home or self-care (01) ==
LOC: OR 06:15
PROVIDERS: ATTEND Internal Medicine Cardiovascular Disease
DX: I48.19 Other persistent atrial fibrillation (principal); J44.9 Chronic obstructive pulmonary disease, unspecified; E78.2 Mixed hyperlipidemia; M19.90 Unspecified osteoarthritis, unspecified site; K21.9 Gastro-esophageal reflux disease without esophagitis; I10 Essential (primary) hypertension; N42.9 Disorder of prostate, unspecified; L23.0 Allergic contact dermatitis due to metals; Z79.82 Long term (current) use of aspirin; Z79.51 Long term (current) use of inhaled steroids; Z79.02 Long term (current) use of antithrombotics/antiplatelets; Z79.899 Other long term (current) drug therapy; Z89.622 Acquired absence of left hip joint
CPT/HCPCS: 93312; 93320; 93325; 92960; 80048; J2704